=== PATIENT | female | born 2000 | race Caucasian/White ===

== ENCOUNTER → 2018-06-07 | Outpatient (CLI) | payer OTHER | LOC: M.ULTRA 10:30 | DX: R10.30 Lower abdominal pain, unspecified (principal); Z87.442 Personal history of urinary calculi ==

== ENCOUNTER 2020-04-14 02:09 | Emergency (ER) | payer OTHER ==
[~2020-04-14] VITALS: Ht 165.1 cm; Wt 56.7 kg
[2020-04-14 02:38] LABS: URINE BILIRUBIN NEGATIVE (Negative); URINE BLOOD 2+ (Negative); URINE CLARITY CLEAR; URINE COLOR STRAW; URINE GLUCOSE-RANDOM NEGATIVE (Negative); URINE KETONES NEGATIVE (Negative); URINE LEUKOCYTES-REFLEX NEGATIVE (Negative); URINE NITRITE-REFLEX NEGATIVE (Negative); URINE PROTEIN NEGATIVE (Negative); URINE SPECIFIC GRAVITY <= 1.005 (1.005-1.030); URINE UROBILINOGEN 0.2 E.U./dl (0.2-1.0)
[2020-04-14 02:54] LABS: ABSOLUTE LYMPHOCYTES 1.6 thou/uL (0.8-5.3); ABSOLUTE MONOCYTES 0.7 thou/uL (0.0-1.2); ABSOLUTE NEUTROPHILS 7.1 thou/uL (1.6-8.1); BASOPHILS 0.3 %; EOSINOPHILS 0.3 %; HEMOGLOBIN 13.1 gm/dL (12.0-15.0); LYMPHOCYTES 17.1 %; MCH 31.9 pg (26.0-34.0); MCHC 34.4 g/dL (28.0-37.0); MCV 92.5 fL (80.0-100.0); MONOCYTES 7.3 %; MPV 8.5 fl. (7.2-11.1); NUCLEATED RBCS 0 /100WBC; PLATELET COUNT* 243 thou/uL (150-400); RBC 4.11 mil/uL (4.20-5.00); RDW-CV 13.2 % (10.5-14.5); WBC 9.5 thou/uL (4.0-11.0)
[2020-04-14 02:56] LABS: CALCIUM 8.7 mg/dL (8.5-10.1); CREATININE 0.8 mg/dL (0.6-1.3); POTASSIUM 3.4 mmol/L (3.5-5.1)
[2020-04-14 03:00] LABS: TOTAL BILIRUBIN 0.6 mg/dL (<0.1-1.0); TOTAL PROTEIN 7.2 g/dL (6.4-8.2)
[2020-04-14 03:09] LABS: CASTS None Seen /LPF (None Seen); SQUAMOUS >10 Many /LPF (0-3)
[2020-04-14 03:10] LABS: URINE WBC-REFLEX 0-5 Rare /HPF (0-5)
[2020-04-14 03:11] LABS: BACTERIA-REFLEX None Seen /HPF (None Seen); CRYSTALS None Seen /LPF (None Seen); URINE RBC 3-10 Few /HPF (0-2)
[2020-04-14] MEDS ORDERED: ZOFRAN ODT4 MG DISSOLVE (03:51)
[2020-04-14] MEDS ORDERED: NORCO 5-325 TA1 EAC1 PO (03:51)
[2020-04-14] MEDS ORDERED: FLOMAX0.4 MG PO (03:51)
[2020-04-14] MEDS ORDERED: IBUPROFEN 800800 M1 PO (03:51)
[2020-04-14 04:11] VITALS: BP 94/44
== END 2020-04-14 04:15 | disposition home or self-care (01) ==
LOC: M.ERS 02:09
PROVIDERS: Emergency Medicine Emergency Medical Services
DX: N20.0 Calculus of kidney (principal); R11.2 Nausea with vomiting, unspecified; Z87.442 Personal history of urinary calculi

== ENCOUNTER 2021-05-16 18:48 | Emergency (ER) | payer OTHER ==
[~2021-05-16] VITALS: Ht 165.1 cm; Wt 51.7 kg
[~2021-05-16 18:48] MED LIST: FLOMAX0.4 MG PO; IBUPROFEN 800800 M1 PO; NORCO 5-325 TA1 EAC1 PO; ZOFRAN ODT4 MG DISSOLVE
[2021-05-16] MEDS ORDERED: COLESTID PO (19:11)
[2021-05-16 20:26] LABS: HEMATOCRIT 47.2 % (37.0-47.0); HEMOGLOBIN 16.3 gm/dL (12.0-15.0); MCH 32.1 pg (26.0-34.0); MCHC 34.6 g/dL (28.0-37.0); MCV 92.8 fL (80.0-100.0); MPV 8.8 fl. (7.2-11.1); NUCLEATED RBCS 0 /100WBC; PLATELET COUNT* 282 thou/uL (150-400); RBC 5.08 mil/uL (4.20-5.00); RDW-CV 12.7 % (10.5-14.5); WBC 12.4 thou/uL (4.0-11.0)
[2021-05-16 20:28] LABS: CREATININE 0.7 mg/dL (0.6-1.3); POTASSIUM 4.5 mmol/L (3.5-5.1)
[2021-05-16 20:32] LABS: MAGNESIUM 2.2 mg/dL (1.8-2.4); TOTAL BILIRUBIN 0.5 mg/dL (<0.1-1.0); TOTAL PROTEIN 7.8 g/dL (6.4-8.2)
[2021-05-16 21:02] LABS: URINE BILIRUBIN NEGATIVE (Negative); URINE BLOOD TRACE (Negative); URINE CLARITY CLEAR; URINE COLOR YELLOW; URINE GLUCOSE-RANDOM NEGATIVE (Negative); URINE KETONES NEGATIVE (Negative); URINE LEUKOCYTES-REFLEX 1+ (Negative); URINE NITRITE-REFLEX NEGATIVE (Negative); URINE PROTEIN NEGATIVE (Negative); URINE UROBILINOGEN 0.2 E.U./dl (0.2-1.0)
[2021-05-16 21:10] LABS: ABSOLUTE EOSINOPHILS 4.2 thou/uL (0.0-0.7); ABSOLUTE MONOCYTES 0.4 thou/uL (0.0-1.2); ABSOLUTE NEUTROPHILS 5.8 thou/uL (1.6-8.1); PLATELET ESTIMATE ADEQUATE
[2021-05-16 21:11] LABS: LARGE PLATELETS RARE
[2021-05-16 21:21] LABS: SQUAMOUS >10 Many /LPF (0-3); URINE RBC 0-2 Rare /HPF (0-2); URINE WBC-REFLEX 0-5 Rare /HPF (0-5)
[2021-05-16 21:22] LABS: BACTERIA-REFLEX 1-9 Few /HPF (None Seen); CASTS None Seen /LPF (None Seen); CRYSTALS None Seen /LPF (None Seen)
[2021-05-16] MEDS ORDERED: PROAIR HFA8.5 GM INH (22:00)
[2021-05-16] MEDS ORDERED: AZITHROMYCIN 2250 MG PO (22:00)
[2021-05-16] MEDS ORDERED: MEDROLDOSEPACK PO (22:00)
[2021-05-16 23:17] VITALS: BP 116/56
--- NOTE | 2021-05-17 12:49 | EKG ---
[place] [address] ELECTROCARDIOGRAM REPORT Name: JEROD DURBIN Room: [facility]#: [id number] Admission: 05/16/21 Attend Phys: Discharge: 05/16/21 Date of : 89 Date of Service: 05/16/212051 Report #: [id number] THIS REPORT FOR: //name// [facility] ED Test Date: 2021-05-16 Test Time: 20:52:40 Pat Name: JEROD DURBIN Department: Room: Gender: F Closing Manager: KELLY : 2000 Requested By: Yael Downs Order Number: [id number] MD: Blas Raymundo Measurements Intervals [place] Rate: 68 P: 68 ID: [id number] QRS: 74 QRSD: 84 T: 3 QT: 392 QTc: 417 Interpretive Statements Sinus rhythm No previous ECG available for comparison Electronically Signed On 05-17-2021 12:49:32 CDT by Blas Raymundo [email or web address] <ELECTRONICALLY SIGNED> By: Blas Raymundo MD, [facility] 05/17/21 1249 51 51 Blas Raymundo MD, FAC /EPI
== END 2021-05-16 23:18 | disposition home or self-care (01) ==
LOC: M.ERS 18:48
PROVIDERS: Personal Emergency Response Attendant
DX: R06.2 Wheezing (principal); R06.02 Shortness of breath; R09.81 Nasal congestion; R09.1 Pleurisy; Z20.822 Contact with and (suspected) exposure to COVID-19; Z87.442 Personal history of urinary calculi